=== PATIENT | female | born 1945 | race American Indian/Alaskan Native ===

== ENCOUNTER 2018-05-17 05:58 | Day surgery (SDC) | payer MEDICARE ==
[2018-05-17] MEDS ORDERED: LACTATED RINGERS 1,000 ML IV SCH (07:00)
[2018-05-17 07:33] LABS: INR 3.21 (0.87-1.13)
--- NOTE | 2018-05-17 07:41 | Anesthesia Consultation ---
Anesthesia Consult and Med Hx - Airway Anesthetic Teeth Evaluation: Edentulous ROM Head & Neck: Adequate Mental/Hyoid Distance: Adequate Mallampati Class: Class II Intubation Access Assessment: Probably Good - Pulmonary Exam CTA: Yes - Cardiac Exam Cardiac Exam: RRR - Pre-Operative Health Status ASA Pre-Surgery Classification: ASA3 Proposed Anesthetic Plan: MAC - Pulmonary Hx Smoking: No Hx Asthma: No Hx Sleep Apnea: No (ROBERTO PRE SCREEN HIGH RISK) - Cardiovascular System Hx Hypertension: Yes (X 15 YRS) - Central Nervous System CVA: No Hx Back Pain: Yes - Gastrointestinal Hx Gastroesophageal Reflux Disease: No - Endocrine Hx Renal Disease: No Hx Liver Disease: No - Hematic Hx Anemia: No - Other Systems Hx Cancer: No Hx Obesity: Yes
--- NOTE | 2018-05-17 07:41 | Anesthesia Day of Surgery ---
Anesthesia Day of Surgery - Day of Surgery Patient Examined: Yes Patient H&P Reviewed: Yes Patient is NPO: Yes
[2018-05-17] MEDS ORDERED: MARCAINE 0.25% INFILTRATI ONE (07:42)
[2018-05-17] MEDS ORDERED: XYLOCAINE 2% INFILTRATI ONE (07:42)
[2018-05-17] MEDS ORDERED: DEPO-Medrol ONE (07:42)
[2018-05-17] MEDS ORDERED: MARCAINE 0.5% INFILTRATI ONE ×3 (07:44→08:30)
[2018-05-17] MEDS ORDERED: VERSED ONE (08:04)
[2018-05-17] MEDS ORDERED: DIPRIVAN 10 MG/ML IV ONE ×2 (08:04→09:03)
[2018-05-17] MEDS ORDERED: DILAUDID ONE (08:04)
[2018-05-17] MEDS ORDERED: XYLOCAINE MPF 2% ONE (08:05)
[2018-05-17 08:12] LABS: Partial Thromboplastin Time 99.2 Sec. (24.2-36.6)
[2018-05-17] MEDS ORDERED: XYLOCAINE 1% 20 mL INFILTRATI ONE ×2 (08:30)
[2018-05-17] MEDS ORDERED: WATER FOR IRRIG STERILE IR ONE (08:30)
[2018-05-17] MEDS ORDERED: DEPO-Medrol INTRA-ARTI ONE (08:30)
--- NOTE | 2018-05-17 09:30 | Procedure Note ---
Date of procedure: 05/17/18 Pre-op diagnosis: chronic low back pain Post-op diagnosis: same Procedure: Lumbar radiofrequency ablation right L2,3 and 5 Procedure The patient was brought to the OR and placed on the Adam table prone with a probable place underneath the abdomen to straighten out the lumbar spine next the lumbar spine area was prepped and draped in the usual sterile manner using C-arm fluoroscopy 3 lumbar pain management introducers placed in the area near the superior articular process junctions to the transverse processes AP and lateral views were used to confirm correct placement of the probes. Next motor nerves were checked to ensure that we were not next to a motor branch following this local anesthetic was used to deaden the area followed by radiofrequency ablation of the medial branch of the dorsal rami. This step repeated for each level until we had perform all three spots. At the completion of the third and final ablation the patient was awakened and was taken to postanesthesia recovery in a stable condition, there were no complications Anesthesia: other (IV sedation) Surgeon: JONE GAYTAN Road Crew Member: RAHEL COLE Estimated blood loss: minimal Pathology: none Condition: stable Disposition: PACU
[2018-05-17] MEDS ORDERED: NORCO 7.5/325 PO PRN (11:00)
--- NOTE | 2018-05-17 14:23 | Post Anesthesia Evaluation ---
- Post Anesthesia Evaluation Patient Participated: Yes Airway Patent: Yes Stable Respiratory Function: Yes Nausea/Vomiting: No Temp > 96.8F: Yes Pain Manageable: Yes Adequeate Hydration: Yes Anesthesia Complications: No
[2018-05-17 18:28] VITALS: BP 127/64
--- NOTE | 2018-05-18 08:15 | XRay Report ---
LUMBAR SPINE, PA VIEW History: Chronic lower back pain. Findings: Fluoroscopy was provided by radiology during needle placement for radiofrequency ablation from L3-L5 on the right side. A single fluoroscopic image was saved. Please correlate with the procedural report by Dr. Arnett as needed. Impression: Successful needle placement for radiofrequency ablation.
== END 2018-05-17 11:25 | disposition home or self-care (01) ==
LOC: OR 05:58
PROVIDERS: ATTEND Orthopaedic Surgery
DX: M47.816 Spondylosis without myelopathy or radiculopathy, lumbar region (principal); I10 Essential (primary) hypertension; Z79.899 Other long term (current) drug therapy; Z79.01 Long term (current) use of anticoagulants; Z91.041 Radiographic dye allergy status; Z88.8 Allergy status to other drugs, medicaments and biological substances; Z80.0 Family history of malignant neoplasm of digestive organs; Z86.010 Personal history of colon polyps; Z90.49 Acquired absence of other specified parts of digestive tract; E66.9 Obesity, unspecified; Z68.43 Body mass index [BMI] 50.0-59.9, adult; Z90.710 Acquired absence of both cervix and uterus; Z98.891 History of uterine scar from previous surgery
CPT/HCPCS: 36415; 64635; 64636; 72020; 85610; 85730; A4649; J1030; J1170; J2250; J2704; J7120